=== PATIENT | female | born 1970 | race Two or more races ===

== ENCOUNTER 2019-04-30 07:25 | Inpatient (IN) | payer OTHER ==
[2019-04-30] VITALS (10 sets, daily range): BP systolic 92–119; BP diastolic 51–91
[~2019-04-30] VITALS: Ht 167.6 cm; Wt 58.1 kg
--- NOTE | 2019-04-30 07:36 | NUR ---
patient RORY borther visiting from [place], c/o chest sharp pain, radiating to left arm and back. On room air, breathing evenly and unlabored. Connected to the monitor and pulse ox. Awaiting for MD for eval. Will continue to monitor accordingly.
[2019-04-30 07:52] LABS: BASOPHILS # (AUTO) 0.1 /CMM (0.0-0.2); BASOPHILS % (AUTO) 2.4 % (0.0-2.0); EOSINOPHILS % (AUTO) 3.9 % (0.0-6.0); LYMPHOCYTES # (AUTO) 2.2 /CMM (0.8-4.8); LYMPHOCYTES % (AUTO) 43.5 % (20.0-44.0); MEAN CORPUSCULAR HGB CONC 26 g/dl (31.0-36.0); MEAN CORPUSCULAR VOLUME 56 fL (82-100); MONOCYTES # (AUTO) 0.4 /CMM (0.1-1.30); MONOCYTES % (AUTO) 7.8 % (2.0-12.0); NEUTROPHILS # (AUTO) 2.1 /CMM (1.8-8.9); NEUTROPHILS % (AUTO) 42.4 % (43.0-81.0); PLATELET COUNT (AUTO) 201 /CMM (150-450); WHITE BLOOD COUNT (AUTO) 5.1 K/uL (4.3-11.0)
[2019-04-30 07:59] LABS: HEMOGLOBIN 4.8 g/dL (11.5-14.8)
[2019-04-30 08:00] LABS: HEMATOCRIT 19 % (33-45)
[2019-04-30 08:06] LABS: CALCIUM, SERUM 8.3 mg/dL (8.5-10.1); CREATININE 0.6 mg/dL (0.6-1.3); POTASSIUM 4.2 mmol/L (3.5-5.1)
[2019-04-30 08:38] LABS: EOSINOPHILS % (MANUAL) 1 % (0-4); LYMPHOCYTES % (MANUAL) 42 % (16-48); MONOCYTES % (MANUAL) 7 % (0-11.0); NEUTROPHILS % (MANUAL) 50 (42-76)
--- NOTE | 2019-04-30 09:15 | NUR ---
[facility] PAGED
[2019-04-30] MEDS ORDERED: FERR325T23 PO (10:12)
--- NOTE | 2019-04-30 10:32 | NUR ---
REPORT GIVEN TO MOE MICHELLE FOR KARYNA PT WILL BE TRANSPORTED TO 3RD FLOOR VIA ACLS PROTOCOL
--- NOTE | 2019-04-30 11:00 | NUR ---
RECEIVED PATIENT AWAKE ALERT AND ORIENTED X4 , BROTHER AT BEDSIDE. PATIENT ADM.TO TELEMETRY (SR WITH HR [id number]). BREATHING UNLABORED AND EVEN ON ROOM AIR, NO DISTRESS NOTED. SKIN WARM TO TOUCH, PALE.GAIT STEADY. PATIENT ADM. WITH ANEMIA 4.6. 1 UNIT RBC ORDERED IN ER NOT TRANSFUSED YET. IV LINE PATENT AND INTACT, FLUSHING WELL.PATIENT ORIENTED TO UNIT AND ROOM, SAFETY PRECAUTIONS IMPLEMENTED, CALL LIGHT WITHIN REACH. AWAITING FOR ADM.ORDERS.
--- NOTE | 2019-04-30 11:35 | NUR ---
PATIENT SEEN BY . PER NO ACUTE TRANSFUSION BEFORE DR.TANG DYER
[2019-04-30 13:30] LABS: THYROID STIMULATING HORMONE 1.564 uIU/mL (0.358-3.74)
[2019-04-30 13:41] LABS: PHOSPHORUS 4.1 mg/dL (2.5-4.9)
--- NOTE | 2019-04-30 19:10 | NUR ---
RN MS OPENING NOTES RECEIVED PT IN BED, AWAKE ALERT ORIENTED X4, BREATHING EVEN AND UNLABORED ON RA. NO COMPLAINT OF PAIN OR DISCOMFORT AT THIS TIME.IV ACCESS ON THE LAC 20G SL. WAITING TO BE SEEN BY DR. QUARLES FOR TRANSFUSION. BED IN LOWEST LOCKED POSITION, CALL LIGHT WITHIN REACH AT ALL TIMES, WILL CONTINUE TO MONITOR FREQUENTLY.
[2019-04-30] MEDS: SOD FERRIC GLUC 125 MG in IV NS 0.9% 100 ML IV SCH (19:46)
[2019-04-30] MEDS ORDERED: diphenhydrAMINE HCL 50 MG/ML VIAL IV ONE (20:30)
[2019-04-30] MEDS ORDERED: ACETAMINOPHEN 325 MG TABLET PO ONE (20:30)
--- NOTE | 2019-04-30 20:50 | NUR ---
POWERPLANT OPERATOR NOTES- PT SEEN BY DR. QUARLES, 2 UNITS OF PRBC ORDERED
--- NOTE | 2019-04-30 21:17 | NUR ---
MOLDED GRID AND PARTS INSPECTOR NOTES- FIRST UNIT OF RBCS BEGUN
[2019-05-01] VITALS (13 sets, daily range): BP systolic 102–117; BP diastolic 59–69
--- NOTE | 2019-05-01 00:05 | NUR ---
PARACHUTE MARKER NOTES- 2ND BAG OF RBC STARTED
[2019-05-01 03:11] LABS: HEMOGLOBIN 6.6 g/dL (11.5-14.8)
--- NOTE | 2019-05-01 06:15 | NUR ---
MERCHANDISE PRESENTATION MANAGER CLOSING NOTES PT REMAINS IN BED, AWAKE ALERT ORIENTED X4, BREATHING EVEN AND UNLABORED ON RA. NO COMPLAINT OF PAIN OR DISCOMFORT AT THIS TIME. DATA PROCESSING SUPERVISOR IN PLACE, SR IN THE 70S. IV ACCESS ON THE LWRIST 20G SL. BED IN LOWEST LOCKED POSITION, CALL LIGHT WITHIN REACH AT ALL TIMES, WILL ENDORSE TO DAY NURSE FOR KARYNA
[2019-05-01 06:16] LABS: ALBUMIN 2.8 g/dL (3.4-5.0); BILIRUBIN,TOTAL 0.6 mg/dL (0.2-1.0); CALCIUM, SERUM 7.9 mg/dL (8.5-10.1); CREATININE 0.5 mg/dL (0.6-1.3); MAGNESIUM 1.7 mg/dL (1.8-2.4); PHOSPHORUS 4.5 mg/dL (2.5-4.9); POTASSIUM 3.9 mmol/L (3.5-5.1)
[2019-05-01 06:22] LABS: BASOPHILS # (AUTO) 0.1 /CMM (0.0-0.2); BASOPHILS % (AUTO) 1.1 % (0.0-2.0); EOSINOPHILS % (AUTO) 3.2 % (0.0-6.0); HEMATOCRIT 22 % (33-45); LYMPHOCYTES # (AUTO) 1.8 /CMM (0.8-4.8); LYMPHOCYTES % (AUTO) 29.5 % (20.0-44.0); MEAN CORPUSCULAR HGB CONC 31 g/dl (31.0-36.0); MEAN CORPUSCULAR VOLUME 64 fL (82-100); MONOCYTES # (AUTO) 0.6 /CMM (0.1-1.30); MONOCYTES % (AUTO) 9.7 % (2.0-12.0); NEUTROPHILS # (AUTO) 3.5 /CMM (1.8-8.9); NEUTROPHILS % (AUTO) 56.5 % (43.0-81.0); PLATELET COUNT (AUTO) 245 /CMM (150-450); RED BLOOD CELL COUNT(AUTO) 3.53 MIL/uL (4.0-5.2); WHITE BLOOD COUNT (AUTO) 6.2 K/uL (4.3-11.0)
[2019-05-01 06:35] LABS: HEMOGLOBIN 6.8 g/dL (11.5-14.8)
--- NOTE | 2019-05-01 07:49 | NUR ---
RN OPENING NOTES PT AWAKE AND RESTING IN BED. DAUGHTER AT BEDSIDE. NO COMPLAINTS OF PAIN, SOB OR DISTRESS AT THIS TIME. PT TELE MONITORED NSR RATE 76. PT HAS LEFT WRIST #20 IV INTACT AND PATENT. SAFETY PRECAUTIONS IN PLACE, BED IN LOWEST LOCKED POSITION, X2 SIDE RAILS UP AND CALL LIGHT WITHIN REACH. WILL CONTINUE TO MONITOR.
[2019-05-01 08:55] LABS: BAND % (MANUAL) 1 % (0.0-5.0); EOSINOPHILS % (MANUAL) 4 % (0-4); LYMPHOCYTES % (MANUAL) 20 % (16-48); MONOCYTES % (MANUAL) 5 % (0-11.0); NEUTROPHILS % (MANUAL) 70 (42-76)
[2019-05-01] MEDS: Magnesium 1GM/D5W 100ML PREMIX 100 ML IV SCH ×2 (11:34→12:28)
[2019-05-01] MEDS ORDERED: SOD FERRIC GLUC 125 MG in IV NS 0.9% 100 ML IV SCH (14:00)
[2019-05-01] MEDS: SOD FERRIC GLUC 125 MG in IV NS 0.9% 100 ML IV SCH (17:58)
[2019-05-01 18:37] LABS: BASOPHILS # (AUTO) 0.1 /CMM (0.0-0.2); BASOPHILS % (AUTO) 1.2 % (0.0-2.0); EOSINOPHILS % (AUTO) 2.1 % (0.0-6.0); HEMATOCRIT 28 % (33-45); HEMOGLOBIN 8.5 g/dL (11.5-14.8); LYMPHOCYTES % (AUTO) 29.9 % (20.0-44.0); MEAN CORPUSCULAR HGB CONC 30 g/dl (31.0-36.0); MEAN CORPUSCULAR VOLUME 66 fL (82-100); MONOCYTES # (AUTO) 0.6 /CMM (0.1-1.30); MONOCYTES % (AUTO) 9.1 % (2.0-12.0); NEUTROPHILS # (AUTO) 3.9 /CMM (1.8-8.9); NEUTROPHILS % (AUTO) 57.7 % (43.0-81.0); PLATELET COUNT (AUTO) 270 /CMM (150-450); RED BLOOD CELL COUNT(AUTO) 4.28 MIL/uL (4.0-5.2); WHITE BLOOD COUNT (AUTO) 6.8 K/uL (4.3-11.0)
--- NOTE | 2019-05-01 18:55 | NUR ---
RN NOTES PT STATUS POST 1 UNIT OF PRBCS. AWAITING CBC RESULTS FOR DISCHARGE.
--- NOTE | 2019-05-01 18:56 | NUR ---
FRENCH BINDING FOLDER NOTES PT STABLE AT DISCHARGE, ALL PATIENT BELONGINGS ACCOUNTED FOR AND TAKEN WITH PATIENT. PT MADE AWARE THAT DR ANTOINE WOULD LIKE PATIENT TO FOLLOW UP WITH GYNO, VALUE ANALYST, AND PRIMARY CARE PHYSICIAN WITHIN 1 WEEK OF DISCHARGE. AWAITING LAB RESULTS S/P 1 UNIT OF PRBC. Addendum: 05/01/19 at 1905 by REY CASANOVA RN PT HEMOGLOBIN IS 8.5. WILL DISCHARGE PATIENT WITH BROTHER AND DAUGHTER. PT AMBULATORY. IV AND ID REMOVED.
[2019-05-01 19:37] LABS: BAND % (MANUAL) 1 % (0.0-5.0); EOSINOPHILS % (MANUAL) 1 % (0-4); LYMPHOCYTES % (MANUAL) 35 % (16-48); MONOCYTES % (MANUAL) 8 % (0-11.0); NEUTROPHILS % (MANUAL) 55 (42-76)
[2019-05-05 12:09] LABS: *HGBFRC HEMOGLOBIN A2 1.9 % (1.8-3.2)
== END 2019-05-01 19:00 | disposition home or self-care (01) | DRG 811 ==
LOC: ER 07:25 → TELE 10:54 → MED 05-01 08:15
PROVIDERS: ADMIT Student in an Organized Health Care Education/Training Program; ATTEND Student in an Organized Health Care Education/Training Program
PROC: 30233P1 Transfusion of Nonautologous Frozen Red Cells into Peripheral Vein, Percutaneous Approach (ICD-10-PCS; principal; 2019-04-30)
DX: D50.9 Iron deficiency anemia, unspecified (principal); I21.A1 Myocardial infarction type 2; E44.0 Moderate protein-calorie malnutrition; R07.89 Other chest pain; N92.0 Excessive and frequent menstruation with regular cycle; E83.42 Hypomagnesemia; Z98.84 Bariatric surgery status; Z87.891 Personal history of nicotine dependence; Z68.20 Body mass index [BMI] 20.0-20.9, adult; D56.9 Thalassemia, unspecified; D25.9 Leiomyoma of uterus, unspecified
CPT/HCPCS: 36415; 71045-TC; 76856-TC; 80048-TC; 80053-TC; 80061-TC; 82728-TC; 83021; 83540-TC; 83735-TC; 84100-TC; 84439-TC; 84443-TC; 84484-TC; 84703-TC; 85025-TC; 85027-TC; 85652-TC; 85660; 86850-TC; 86921-TC; 87081-TC; 93307-TC; 97116-TC; 97530-TC; G0378; J1200; J2916; J3475; J7030; J7050; P9016-BL